=== PATIENT | female | born 1975 | race Hispanic/Latino ===

== ENCOUNTER → 2016-05-27 | Outpatient (CLI) | payer OTHER ==
[~2016-05-27] VITALS: Ht 157.5 cm; Wt 76.2 kg
[~2016-05-27] MED LIST: ADVIL200 M1 PO; CIPRO500 MG PO; FLOMAX0.4 MG PO; IBUPROFEN800 MG PO; LORTAB 5-325 M1 EACH PO; MOTRIN600 MG PO; OXAYDO5 MG PO; PERCOCET 5/31 TABLET PO; ZOFRAN ODT8 MG PO; ZOFRAN4 MG PO
== END | disposition home or self-care (01) ==
LOC: AMB 07:16
PROC: 0TF4XZZ Fragmentation in Left Kidney Pelvis, External Approach (ICD-10-PCS; principal; 2016-05-27)
DX: N20.0 Calculus of kidney (principal)
CPT/HCPCS: 74010; J2250; J3010